=== PATIENT | male | born 1965 | race Caucasian/White ===

== ENCOUNTER 2018-03-19 06:49 | Day surgery (SDC) | payer OTHER ==
[~2018-03-19] VITALS: Ht 165.1 cm; Wt 83.7 kg
[2018-03-19 07:36] VITALS: Ht 165.1 cm; Wt 83.7 kg
[2018-03-19] MEDS ORDERED: LISI40TA3 PO (07:54)
[2018-03-19] MEDS ORDERED: AMLO-147 PO (07:54)
[2018-03-19] MEDS ORDERED: LABE100T7 PO (07:54)
[2018-03-19] MEDS ORDERED: HYDR-3672 PO (07:54)
[2018-03-19 08:11] VITALS: BP 147/85; PULSE 49; RESP 19
--- NOTE | 2018-03-19 09:17 | PREAC ---
Date/Time of Note Date/Time of Note DATE: 03/19/18 TIME: 09:15 Anesthesia Eval and Record Evaluation Time Pre-Procedure Interview DATE: 03/19/18 TIME: 09:15 Age 52 Sex male NPO: 8 hrs Preoperative diagnosis ABDOMINAL PAIN Planned procedure COLONOSCOPY Past Medical History Past Medical History: Includes Cardio: HTN Neuro: CVA Renal: Other (PANCREATITIS) GI: Obesity Surgery & Anesthesia Issues No known issue Meds Anticoagulation: No Beta Joe within 24 hr: Yes Reported Medications Lisinopril* (Lisinopril*) 40 Mg Tablet, 40 MG PO DAILY, #30 TAB 03/19/18 Labetalol Hcl* (Labetalol Hcl*) 100 Mg Tablet, 100 MG PO BID, TAB 03/19/18 Hydralazine Hcl* (Hydralazine Hcl*) 50 Mg Tab, 50 MG PO BID, #90 TAB 03/19/18 Amlodipine Besylate* (Amlodipine Besylate*) 10 Mg Tablet, 10 MG PO DAILY, #30 TAB 03/19/18 Meds reviewed: Yes Allergies Allergies Reviewed: Yes Labs/Studies Labs Reviewed: Reviewed by anesthesiologist test: N/A Pre-procedure Exam Last vitals Vital Signs Date Temp Pulse Resp B/P (MAP) Pulse Ox O2 O2 Flow FiO2 Time Delivery Rate 03/19/18 96.0 49 19 147/85 97 Room Air 08:11 (105) Airway: Adequate mouth opening, Adequate thyromental dist Mallampati: Mallampati II Teeth: Normal Lung: Normal Heart: Normal ASA Physical Status ASA physical status: 3 Emergency: None Planned Anesthetic General/MAC: MAC Planned Pain Management Parenteral pain med Pre-operative Attestations Prior to commencing anesthesia and surgery, the patient was re-evaluated, there was verification of: *The patient's identity *The results of appropriate recent lab work and preoperative vital signs *The above evaluation not changing prior to induction *Anesthetic plan, risk benefits, alternative and complications discussed with patient/family; questions answered; patient/family understands, accepts and wishes to proceed. SYDNIE MOSES Mar 19, 2018 09:17
[2018-03-19] MEDS ORDERED: LIDOCAINE 2% (SDV) 5 ML INJ ONE (09:21)
[2018-03-19] MEDS ORDERED: PROPOFOL 60 ML ONE (09:21)
[2018-03-19] MEDS ORDERED: LABETALOL HCL 20MG INJ IV PRN (09:30)
[2018-03-19] MEDS ORDERED: EPHEDrine SULFATE 50 MG/5 ML SYG IV PRN (09:30)
[2018-03-19] MEDS ORDERED: hydrALAzine 20 MG INJ IV PRN (09:30)
[2018-03-19] MEDS ORDERED: FENTAnyl 50 MCG/ML VIAL IV PRN ×2 (09:30)
[2018-03-19] MEDS ORDERED: ONDANSETRON 4 MG INJ IV PRN (09:30)
--- NOTE | 2018-03-19 10:29 | PAC ---
Date/Time of Note Date/Time of Note DATE: 03/19/18 TIME: 10:29 Post-Anesthesia Notes Post-Anesthesia Note Last documented vital signs Vital Signs Date Temp Pulse Resp B/P (MAP) Pulse Ox O2 O2 Flow FiO2 Time Delivery Rate 03/19/18 97.0 49 19 147/85 97 Room Air 10:11 (105) Activity: WNL Respiratory function: WNL Cardiovascular function: WNL Mental status: Baseline Pain reasonably controlled: Yes Hydration appropriate: Yes Nausea/Vomiting absent: Yes SYDNIE MOSES Mar 19, 2018 10:29
[2018-03-19 10:30] VITALS: BP 137/80; PULSE 68; RESP 19
== END 2018-03-19 10:39 | disposition home or self-care (01) ==
LOC: GIL 06:49
PROVIDERS: ATTEND Internal Medicine Gastroenterology
DX: Z12.11 Encounter for screening for malignant neoplasm of colon (principal); K64.1 Second degree hemorrhoids; K57.30 Diverticulosis of large intestine without perforation or abscess without bleeding
CPT/HCPCS: 45378; Z7610